=== PATIENT | female | born 1960 | race Caucasian/White ===

== ENCOUNTER 2017-11-16 07:02 | Inpatient (IN) | payer OTHER ==
[2017-11-16] MEDS ORDERED: MIDAZOLAM 1 MG/ML 2 ML INJ (07:57)
[2017-11-16] MEDS ORDERED: morphine SULFATE/PF (10 MG/10 ML) INJ (07:57)
[2017-11-16] MEDS ORDERED: ROCURONIUM 50 MG INJ (07:57)
[2017-11-16] MEDS ORDERED: PROPOFOL 20 ML (07:57)
[2017-11-16] MEDS ORDERED: ROPIVACAINE 0.5 % 30 ML VIAL (07:58)
[2017-11-16] MEDS ORDERED: PHENYLephrine (100 MCG/ML) 5ML SYG (08:38)
[2017-11-16] MEDS ORDERED: CEFAZOLIN 1 GM INJ (08:38)
[2017-11-16] MEDS ORDERED: METOCLOPRAMIDE 10 MG INJ (09:04)
[2017-11-16] MEDS ORDERED: HETASTARCH 6% NACL 500 ML (09:04)
[2017-11-16] MEDS ORDERED: ACETAMINOPHEN 1000MG/100ML IV 100 ML (09:04)
[2017-11-16] MEDS ORDERED: DEXAMETHASONE 4 MG/ML 1 ML INJ (09:04)
[2017-11-16] MEDS ORDERED: ONDANSETRON 4 MG INJ (09:04)
[2017-11-16] MEDS ORDERED: EPHEDrine SULFATE 50 MG/5 ML SYG (09:04)
[2017-11-16] MEDS ORDERED: KETOROLAC 30 MG INJ (09:05)
[2017-11-16] MEDS: POLYMYXIN B 500000 UNIT INJ (09:10)
[2017-11-16] MEDS: BACITRACIN 50000 UNITS INJ (09:13)
[2017-11-16] MEDS ORDERED: SUGAMMADEX SODIUM 200 MG/2 ML VIAL IV (09:22)
[2017-11-16] MEDS ORDERED: HYDROCODONE/APAP (5/325) TAB PO (09:30)
[2017-11-16] MEDS ORDERED: morphine 2 MG INJ IV ×2 (09:30)
[2017-11-16] MEDS ORDERED: ALBUMIN HUMAN 5% 250 ML IV (09:30)
[2017-11-16] MEDS ORDERED: hydrALAzine 20 MG INJ IV (09:30)
[2017-11-16] MEDS ORDERED: HYDROmorphONE (0.2 MG/ML) 10ML SYG IV ×3 (09:30)
[2017-11-16] MEDS ORDERED: ACETAMINOPHEN 500 MG TAB PO (09:30)
[2017-11-16] MEDS ORDERED: HYDROmorphONE 0.5 MG/0.5 ML SYG IV ×2 (09:30)
[2017-11-16] MEDS ORDERED: FENTAnyl 50 MCG/ML VIAL IV ×3 (09:30)
[2017-11-16] MEDS ORDERED: NALOXONE (0.4 MG/ML) INJ IV ×2 (09:30→11:00)
[2017-11-16] MEDS ORDERED: ONDANSETRON 4 MG INJ IV ×2 (09:30)
[2017-11-16] MEDS ORDERED: MEPERIDINE 25 MG INJ IV (09:30)
[2017-11-16] MEDS ORDERED: OXYCODONE/ACETAMINOPHEN (5/325) TAB PO ×2 (09:30)
[2017-11-16] MEDS ORDERED: EPHEDrine SULFATE 50 MG/5 ML SYG IV (09:30)
[2017-11-16] MEDS ORDERED: METOCLOPRAMIDE 10 MG INJ IV (09:30)
[2017-11-16] MEDS ORDERED: LABETALOL HCL 20MG INJ IV (09:30)
[2017-11-16] MEDS ORDERED: NALBUPHINE HCL (10 MG/1 ML) INJ IV (09:30)
[2017-11-16] MEDS ORDERED: DIPHENHYDRAMINE 50 MG INJ IV (09:30)
[2017-11-16] MEDS: POLYMYXIN/BACITRACIN 1L IRRIG (09:39)
[2017-11-16] MEDS ORDERED: oxyCODONE 5 MG TAB PO (11:00)
[2017-11-16] MEDS: CEFAZOLIN 1 GM/50 ML (PMX) 50 ML IVPB ×2 (12:37→18:27)
[2017-11-16] MEDS: ONDANSETRON 4 MG INJ IV ×3 (12:38→23:13)
[2017-11-16] MEDS: DOCUSATE SODIUM 100 MG CAP PO (12:38)
[2017-11-16] MEDS: ATORVASTATIN 40 MG TAB PO (20:08)
[2017-11-16] MEDS: oxyCODONE 5 MG TAB PO (23:11)
[2017-11-17] MEDS: CEFAZOLIN 1 GM/50 ML (PMX) 50 ML IVPB (02:59)
[2017-11-17] MEDS: DIPHENHYDRAMINE 50 MG INJ IV (03:03)
[2017-11-17 04:58] LABS: ADD MAN DIFF? NO
[2017-11-17 05:03] LABS: WHITE BLOOD COUNT 11.5 10^3/ul (4.8-10.8)
[2017-11-17 05:03] LABS: BASOPHILS % 0.2 % (0.0-2.0); HEMATOCRIT 29.8 % (37.0-47.0); HEMOGLOBIN 10.3 g/dl (12.0-16.0); LYMPHOCYTES # 0.8 10^3/ul (0.8-2.9); LYMPHOCYTES % 6.5 % (15.0-51.0); MEAN CORPUSCULAR HEMOGLOBIN 28.8 pg (29.0-33.0); MEAN CORPUSCULAR HGB CONC 34.6 g/dl (32.0-37.0); MEAN CORPUSCULAR VOLUME 83.2 fl (82.0-101.0); MEAN PLATELET VOLUME 10.5 fl (7.4-10.4); MONOCYTE # 0.5 10^3/ul (0.3-0.9); MONOCYTES % 4.3 % (0.0-11.0); NEUTROPHIL # 10.2 10^3/ul (1.6-7.5); NEUTROPHILS % 88.7 % (39.0-77.0); PLATELET COUNT 246 10^3/UL (140-415); RED BLOOD COUNT 3.58 10^6/ul (4.20-5.40); RED CELL DISTRIBUTION WIDTH 13.5 % (11.5-14.5)
[2017-11-17] MEDS: ONDANSETRON 4 MG INJ IV (05:41)
[2017-11-17 05:52] LABS: ANION GAP 13 (8-16); BLOOD UREA NITROGEN 14 mg/dl (7-20); CALCIUM 8.6 mg/dl (8.4-10.2); CARBON DIOXIDE 24 mmol/L (21-31); CHLORIDE 105 mmol/L (97-110); CREATININE 0.72 mg/dl (0.44-1.00); GLUCOSE 112 mg/dl (70-220); POTASSIUM 3.6 mmol/L (3.5-5.1); SODIUM 138 mmol/L (135-144)
[2017-11-17] MEDS: AMLODIPINE 10 MG TAB PO (08:24)
[2017-11-17] MEDS: CITALOPRAM 20 MG TAB PO (08:27)
[2017-11-17] MEDS: DOCUSATE SODIUM 100 MG CAP PO ×2 (08:27→21:14)
[2017-11-17] MEDS: APIXABAN 5 MG TABLET PO ×2 (08:27→21:13)
[2017-11-17] MEDS: morphine 2 MG INJ IV (09:28)
[2017-11-17] MEDS: oxyCODONE 5 MG TAB PO (11:48)
[2017-11-17] MEDS: LOSARTAN 50 MG TAB PO (11:49)
[2017-11-17] MEDS: LISINOPRIL 5 MG TAB PO (11:49)
[2017-11-17] MEDS: HYDROCHLOROTHIAZIDE 12.5 MG CAP PO (11:49)
[2017-11-17] MEDS: BUPROPION (SR) 100 MG TAB PO ×2 (13:25→21:13)
[2017-11-17] MEDS ORDERED: HYDROCODONE/APAP (10/325) TAB PO (14:30)
[2017-11-17] MEDS ORDERED: morphine 2 MG INJ IV (14:30)
[2017-11-17] MEDS: HYDROCODONE/APAP (10/325) TAB PO ×2 (14:38→19:13)
[2017-11-17] MEDS ORDERED: morphine 4 MG/ML VIAL IV (15:00)
[2017-11-17] MEDS: ATORVASTATIN 40 MG TAB PO (21:13)
[2017-11-18] MEDS: DIPHENHYDRAMINE 25 MG CAP PO (00:46)
[2017-11-18] MEDS: HYDROCODONE/APAP (10/325) TAB PO ×5 (02:20→19:55)
[2017-11-18 05:30] LABS: ADD MAN DIFF? NO
[2017-11-18 05:42] LABS: WHITE BLOOD COUNT 8.9 10^3/ul (4.8-10.8)
[2017-11-18 05:42] LABS: BASOPHILS % 0.3 % (0.0-2.0); HEMATOCRIT 30.5 % (37.0-47.0); HEMOGLOBIN 10.4 g/dl (12.0-16.0); LYMPHOCYTES # 1.1 10^3/ul (0.8-2.9); LYMPHOCYTES % 12.2 % (15.0-51.0); MEAN CORPUSCULAR HEMOGLOBIN 28.7 pg (29.0-33.0); MEAN CORPUSCULAR HGB CONC 34.1 g/dl (32.0-37.0); MEAN PLATELET VOLUME 10.4 fl (7.4-10.4); MONOCYTE # 0.7 10^3/ul (0.3-0.9); MONOCYTES % 8.3 % (0.0-11.0); NEUTROPHILS % 78.9 % (39.0-77.0); PLATELET COUNT 231 10^3/UL (140-415); RED BLOOD COUNT 3.63 10^6/ul (4.20-5.40); RED CELL DISTRIBUTION WIDTH 13.5 % (11.5-14.5)
[2017-11-18] MEDS: PANTOPRAZOLE (EC) 40 MG TAB PO (06:08)
[2017-11-18] MEDS: HYDROCHLOROTHIAZIDE 12.5 MG CAP PO (06:09)
[2017-11-18 06:19] LABS: ANION GAP 8 (8-16); BLOOD UREA NITROGEN 14 mg/dl (7-20); CALCIUM 8.4 mg/dl (8.4-10.2); CARBON DIOXIDE 30 mmol/L (21-31); CHLORIDE 103 mmol/L (97-110); CREATININE 0.78 mg/dl (0.44-1.00); GLUCOSE 111 mg/dl (70-220); POTASSIUM 3.3 mmol/L (3.5-5.1); SODIUM 138 mmol/L (135-144)
[2017-11-18] MEDS: CITALOPRAM 20 MG TAB PO (08:31)
[2017-11-18] MEDS: DOCUSATE SODIUM 100 MG CAP PO ×2 (08:31→21:31)
[2017-11-18] MEDS: APIXABAN 5 MG TABLET PO ×2 (08:31→21:31)
[2017-11-18] MEDS: BUPROPION (SR) 100 MG TAB PO ×2 (08:31→21:31)
[2017-11-18] MEDS: LOSARTAN 50 MG TAB PO (08:32)
[2017-11-18] MEDS: LISINOPRIL 5 MG TAB PO (08:32)
[2017-11-18] MEDS: AMLODIPINE 10 MG TAB PO (08:32)
[2017-11-18] MEDS: POTASSIUM CHLORIDE (SR) 20 MEQ TAB PO (10:35)
[2017-11-18] MEDS: ATORVASTATIN 40 MG TAB PO (21:31)
[2017-11-19] MEDS: HYDROCODONE/APAP (10/325) TAB PO ×4 (01:27→18:36)
[2017-11-19 05:03] LABS: ADD MAN DIFF? NO
[2017-11-19 05:08] LABS: BASOPHILS % 0.5 % (0.0-2.0); EOSINOPHILS % 0.5 % (0.0-7.0); HEMATOCRIT 29.2 % (37.0-47.0); HEMOGLOBIN 10.1 g/dl (12.0-16.0); LYMPHOCYTES # 1.4 10^3/ul (0.8-2.9); LYMPHOCYTES % 15.9 % (15.0-51.0); MEAN CORPUSCULAR HEMOGLOBIN 29.2 pg (29.0-33.0); MEAN CORPUSCULAR HGB CONC 34.6 g/dl (32.0-37.0); MEAN CORPUSCULAR VOLUME 84.4 fl (82.0-101.0); MEAN PLATELET VOLUME 10.5 fl (7.4-10.4); MONOCYTE # 0.9 10^3/ul (0.3-0.9); MONOCYTES % 10.2 % (0.0-11.0); NEUTROPHIL # 6.3 10^3/ul (1.6-7.5); NEUTROPHILS % 72.6 % (39.0-77.0); PLATELET COUNT 234 10^3/UL (140-415); RED BLOOD COUNT 3.46 10^6/ul (4.20-5.40); RED CELL DISTRIBUTION WIDTH 14.1 % (11.5-14.5)
[2017-11-19 05:08] LABS: WHITE BLOOD COUNT 8.6 10^3/ul (4.8-10.8)
[2017-11-19] MEDS: PANTOPRAZOLE (EC) 40 MG TAB PO (05:45)
[2017-11-19] MEDS: HYDROCHLOROTHIAZIDE 12.5 MG CAP PO (05:46)
[2017-11-19 05:49] LABS: ANION GAP 12 (8-16); BLOOD UREA NITROGEN 16 mg/dl (7-20); CALCIUM 8.6 mg/dl (8.4-10.2); CARBON DIOXIDE 30 mmol/L (21-31); CHLORIDE 104 mmol/L (97-110); CREATININE 0.94 mg/dl (0.44-1.00); GLUCOSE 109 mg/dl (70-220); POTASSIUM 3.6 mmol/L (3.5-5.1); SODIUM 142 mmol/L (135-144)
[2017-11-19] MEDS: LISINOPRIL 5 MG TAB PO (08:17)
[2017-11-19] MEDS: DOCUSATE SODIUM 100 MG CAP PO ×2 (08:17→20:34)
[2017-11-19] MEDS: APIXABAN 5 MG TABLET PO ×2 (08:17→20:34)
[2017-11-19] MEDS: BUPROPION (SR) 100 MG TAB PO ×2 (08:17→20:34)
[2017-11-19] MEDS: LOSARTAN 50 MG TAB PO (08:19)
[2017-11-19] MEDS: CITALOPRAM 20 MG TAB PO (08:19)
[2017-11-19] MEDS: AMLODIPINE 10 MG TAB PO (08:20)
[2017-11-19] MEDS: ATORVASTATIN 40 MG TAB PO (20:34)
[2017-11-20] MEDS: HYDROCODONE/APAP (10/325) TAB PO ×4 (01:43→16:39)
[2017-11-20] MEDS: PANTOPRAZOLE (EC) 40 MG TAB PO (05:09)
[2017-11-20] MEDS: HYDROCHLOROTHIAZIDE 12.5 MG CAP PO (05:11)
[2017-11-20 05:17] LABS: ADD MAN DIFF? NO
[2017-11-20 05:32] LABS: WHITE BLOOD COUNT 7.2 10^3/ul (4.8-10.8)
[2017-11-20 05:33] LABS: BASOPHILS % 0.4 % (0.0-2.0); EOSINOPHILS # 0.1 10^3/ul (0.0-0.5); EOSINOPHILS % 1.3 % (0.0-7.0); HEMATOCRIT 28.1 % (37.0-47.0); HEMOGLOBIN 9.7 g/dl (12.0-16.0); LYMPHOCYTES # 1.1 10^3/ul (0.8-2.9); LYMPHOCYTES % 15.4 % (15.0-51.0); MEAN CORPUSCULAR HEMOGLOBIN 28.9 pg (29.0-33.0); MEAN CORPUSCULAR HGB CONC 34.5 g/dl (32.0-37.0); MEAN CORPUSCULAR VOLUME 83.6 fl (82.0-101.0); MEAN PLATELET VOLUME 10.3 fl (7.4-10.4); MONOCYTE # 0.6 10^3/ul (0.3-0.9); MONOCYTES % 8.6 % (0.0-11.0); NEUTROPHIL # 5.3 10^3/ul (1.6-7.5); PLATELET COUNT 243 10^3/UL (140-415); RED BLOOD COUNT 3.36 10^6/ul (4.20-5.40); RED CELL DISTRIBUTION WIDTH 13.9 % (11.5-14.5)
[2017-11-20 05:39] LABS: ANION GAP 8 (8-16); BLOOD UREA NITROGEN 14 mg/dl (7-20); CALCIUM 8.8 mg/dl (8.4-10.2); CARBON DIOXIDE 31 mmol/L (21-31); CHLORIDE 104 mmol/L (97-110); CREATININE 0.73 mg/dl (0.44-1.00); GLUCOSE 122 mg/dl (70-220); POTASSIUM 4.1 mmol/L (3.5-5.1); SODIUM 139 mmol/L (135-144)
[2017-11-20] MEDS: BUPROPION (SR) 100 MG TAB PO (08:40)
[2017-11-20] MEDS: AMLODIPINE 10 MG TAB PO (08:41)
[2017-11-20] MEDS: LISINOPRIL 5 MG TAB PO (08:42)
[2017-11-20] MEDS: APIXABAN 5 MG TABLET PO (08:42)
[2017-11-20] MEDS: LOSARTAN 50 MG TAB PO (08:43)
[2017-11-20] MEDS: MAGNESIUM HYDROXIDE 30ML CUP PO (08:43)
[2017-11-20] MEDS: CITALOPRAM 20 MG TAB PO (08:43)
[2017-11-20] MEDS: SENNA/DOCUSATE NA (8.6MG/50MG) TAB PO (15:04)
== END 2017-11-20 17:25 | disposition home health service (06) | DRG 470 ==
LOC: REC 07:02 → MS1 13:11
PROC: 0SRC0J9 Replacement of Right Knee Joint with Synthetic Substitute, Cemented, Open Approach (ICD-10-PCS; principal; 2017-11-16 08:00)
DX: M17.11 Unilateral primary osteoarthritis, right knee (principal); I10 Essential (primary) hypertension; E78.5 Hyperlipidemia, unspecified; F32.9 Major depressive disorder, single episode, unspecified; E05.90 Thyrotoxicosis, unspecified without thyrotoxic crisis or storm
CPT/HCPCS: 73560; 80048; 85025; 86850; 86900; 86901; 88304; 88311; 97110; 97116; 97530

== ENCOUNTER 2017-12-24 09:56 | Emergency (ER) | payer OTHER | END 2017-12-24 11:55 | disposition home or self-care (01) | LOC: FTE 09:56 | DX: G89.18 Other acute postprocedural pain (principal); M79.604 Pain in right leg; I10 Essential (primary) hypertension; Z96.651 Presence of right artificial knee joint | CPT/HCPCS: 93971; 99284-25 ==